=== PATIENT | male | born 1970 | race Two or more races ===

== ENCOUNTER 2020-07-19 06:51 | Emergency (ER) | payer OTHER ==
[~2020-07-19] VITALS: Ht 175.3 cm; Wt 95.3 kg
== END 2020-07-19 13:33 | disposition home or self-care (01) ==
LOC: ER 06:51
DX: H66.92 Otitis media, unspecified, left ear (principal); R51.9 Headache, unspecified; R42 Dizziness and giddiness; Z03.818 Encounter for observation for suspected exposure to other biological agents ruled out

== ENCOUNTER 2021-10-07 08:00 | Outpatient (CLI) | payer OTHER | END 2021-10-07 08:30 | disposition home or self-care (01) | LOC: PPH VACUNA 08:00 | PROVIDERS: ATTEND Emergency Medicine Pediatric Emergency Medicine | DX: Z23 Encounter for immunization (principal) ==

== ENCOUNTER 2022-04-10 06:57 | Emergency (ER) | payer OTHER ==
[~2022-04-10] VITALS: Ht 175.3 cm; Wt 83.9 kg
[2022-04-10] MEDS ORDERED: AVALIDE 300-121 EACH PO (07:04)
== END 2022-04-10 09:36 | disposition home or self-care (01) ==
LOC: ER 06:57
DX: S93.401A Sprain of unspecified ligament of right ankle, initial encounter (principal); X50.1XXA Overexertion from prolonged static or awkward postures, initial encounter; Y93.89 Activity, other specified; Y92.9 Unspecified place or not applicable; S43.402A Unspecified sprain of left shoulder joint, initial encounter

== ENCOUNTER → 2022-05-13 | Emergency (ER) | payer OTHER ==
[~2022-05-13] VITALS: Ht 175.3 cm; Wt 88.5 kg
[~2022-05-13] MED LIST: AVALIDE 300-121 EACH PO
== END | disposition home or self-care (01) ==
LOC: ER 20:45
DX: E53.8 Deficiency of other specified B group vitamins (principal); Z88.6 Allergy status to analgesic agent